=== PATIENT | female | born 1955 | race African-American/Black ===

== ENCOUNTER 2018-02-24 16:58 | Inpatient (IN) | payer MEDICARE, MEDICAID ==
[~2018-02-24] VITALS: Ht 167.6 cm; Wt 74.4 kg
--- NOTE | 2018-02-24 17:00 | NUR ---
AAOX3, C/O ASTHMA ATTACK, WORSENING SOB FOR THE PAST 4 DAYS. RESP IS LABORED, TACHYPNEIC. SKIN IS WARM AND DRY. PLACED ON MONITOR AND NC AT 2L/MIN. AWAITING MD FOR EVAL.
[2018-02-24] MEDS ORDERED: Magnesium 1GM/D5W 100ML PREMIX 200 ML IV ONE ×2 (17:15→17:27)
[2018-02-24] MEDS ORDERED: IPRATROPIUM NEB FS 0.5 MG/2.5 ML AMPUL.NEB ONE (17:17)
[2018-02-24] MEDS ORDERED: ALBUTEROL FS 2.5 MG/3 ML VIAL.NEB ONE (17:17)
[2018-02-24] MEDS ORDERED: methylPREDNISolone SOD SUCC 125 MG/2ML VIAL ONE (17:27)
[2018-02-24] MEDS ORDERED: IV NS 0.9% 1,000 ML BAG IV ONE (17:30)
[2018-02-24] MEDS ORDERED: ALBUTEROL FS 2.5 MG/3 ML VIAL.NEB NEB ONE (17:30)
[2018-02-24] MEDS ORDERED: IPRATROPIUM NEB FS 0.5 MG/2.5 ML AMPUL.NEB NEB ONE (17:30)
[2018-02-24] MEDS ORDERED: methylPREDNISolone SOD SUCC 125 MG/2ML VIAL IV ONE (17:30)
[2018-02-24 17:44] LABS: BASOPHILS # (AUTO) 0.1 /CMM (0.0-0.2); BASOPHILS % (AUTO) 0.7 % (0.0-2.0); EOSINOPHILS % (AUTO) 1.7 % (0.0-6.0); HEMATOCRIT 37 % (33-45); HEMOGLOBIN 12.1 g/dL (11.5-14.8); LYMPHOCYTES # (AUTO) 2.6 /CMM (0.8-4.8); LYMPHOCYTES % (AUTO) 31.6 % (20.0-44.0); MEAN CORPUSCULAR HGB CONC 32 g/dl (31.0-36.0); MEAN CORPUSCULAR VOLUME 73 fL (82-100); MONOCYTES # (AUTO) 0.7 /CMM (0.1-1.30); MONOCYTES % (AUTO) 7.9 % (2.0-12.0); NEUTROPHILS # (AUTO) 4.8 /CMM (1.8-8.9); NEUTROPHILS % (AUTO) 58.1 % (43.0-81.0); PLATELET COUNT (AUTO) 272 /CMM (150-450); RDW COEFFICIENT OF VARIATION 16.5 (11.5-15.0); RED BLOOD CELL COUNT(AUTO) 5.12 MIL/uL (4.0-5.2); WHITE BLOOD COUNT (AUTO) 8.3 K/uL (4.3-11.0)
[2018-02-24 17:55] LABS: MAGNESIUM 2.3 mg/dL (1.8-2.4)
[2018-02-24 18:04] LABS: TROPONIN I < 0.017 ng/mL (0.00-0.056)
[2018-02-24 18:05] LABS: CALCIUM, SERUM 8.7 mg/dL (8.5-10.1); CREATININE 1.6 mg/dL (0.6-1.3); POTASSIUM 2.9 mmol/L (3.5-5.1)
[2018-02-24 18:10] LABS: ALBUMIN 3.2 g/dL (3.4-5.0); BILIRUBIN,DIRECT 0.1 mg/dL (0.0-0.2); BILIRUBIN,TOTAL 0.4 mg/dL (0.2-1.0); TOTAL PROTEIN, SERUM 7.2 g/dL (6.4-8.2)
[2018-02-24] MEDS ORDERED: VALA500T36 PO (18:28)
[2018-02-24] MEDS ORDERED: LEVO100T9 PO (18:28)
[2018-02-24] MEDS ORDERED: TIOT18CA3 IH (18:28)
[2018-02-24] MEDS ORDERED: POTA8TAB3 PO (18:28)
[2018-02-24] MEDS ORDERED: ESOM40CA PO (18:28)
[2018-02-24] MEDS ORDERED: OLAN10TA3 PO (18:28)
[2018-02-24] MEDS ORDERED: BUDE10.2 INH (18:28)
[2018-02-24] MEDS ORDERED: HYDR50TA3 PO (18:28)
[2018-02-24] MEDS ORDERED: TRAZ-182 PO (18:28)
[2018-02-24] MEDS ORDERED: ALBU18HF2 IH (18:28)
[2018-02-24] MEDS ORDERED: CALC-1026 PO (18:28)
[2018-02-24] MEDS ORDERED: POTASSIUM CHLORIDE 20 MEQ TAB.PRT.SR PO ONE ×2 (19:00→19:04)
--- NOTE | 2018-02-24 19:02 | NUR ---
REPORT GIVEN TO DONOVAN DOZIER FOR FREDDY.
--- NOTE | 2018-02-24 20:03 | NUR ---
CALLING REPORT TO DONOVAN RODRIGUEZ
[2018-02-24 20:20] VITALS: BP 126/76
--- NOTE | 2018-02-24 20:20 | NUR ---
INTERNET PROJECT MANAGER OPENING NOTES: RECEIVED PT AND IS A/OX4. PT IS ON ROOM AIR AND TOLERATING WELL. PT TO BE PLACED ON TELE BOX. PT HAS IV ON L FOREARM #18G AND IS PATENT AND INTACT. PT TO BE PLACED ON TELE BOX. NASAL CANNULA PLACED NEXT TO BEDSIDE FOR PRN 02 SUPP. CALL LIGHT WITHIN PT'S REACH. BED KEPT IN LOW, LOCKED POSITION, AND SIDE RAILS X 2UP. WILL CONTINUE TO MONITOR PT.
[2018-02-24 20:30] VITALS: BP 126/76
--- NOTE | 2018-02-24 20:40 | NUR ---
PERSONAL FINANCIAL REPRESENTATIVE NOTES: $400 COLLECTED ALONG WITH PHILIP BIANCHI. 20 ($20 BILLS) ; PUT IN SAFE.
--- NOTE | 2018-02-24 20:46 | NUR ---
ETHOLOGIST NOTES: INFORMED RUG CLEANER RADHA THAT PT IS ON FLOOR AND PT IS REQUESTING FOR SOMETHING TO EAT. PER LISA MARTIN, LOW SODIUM OW CARB DIET.
[2018-02-24] MEDS ORDERED: Z GUARD REMEDY 2 OZ OINT TP PRN (21:00)
[2018-02-24] MEDS ORDERED: DEXTROSE 50%-WATER 50 ML DISP.SYRIN IV PRN (21:00)
[2018-02-24] MEDS ORDERED: ONDANSETRON HCL/PF 4 MG/2 ML VIAL IVP PRN (21:00)
[2018-02-24] MEDS ORDERED: ACETAMINOPHEN 325 MG TABLET PO PRN (21:00)
[2018-02-24] MEDS: IPRATROPIUM NEB FS 0.5 MG/2.5 ML AMPUL.NEB NEB SCH (21:33)
[2018-02-24] MEDS: ALBUTEROL FS 2.5 MG/0.5 ML VIAL.NEB NEB SCH (21:34)
[2018-02-24] MEDS: ATORVASTATIN 40 MG TABLET PO SCH (21:35)
[2018-02-24] MEDS: BLOOD SUGAR DIAGNOSTIC 1 EACH STRIP IN SCH (21:39)
[2018-02-24] MEDS: INSULIN REGULAR, HUMAN 100 UNIT/ML 3 ML VIAL SQ PRN (21:51)
--- NOTE | 2018-02-24 21:52 | NUR ---
RUG TOUCH UP PAINTER NOTES: BLOOD SUGAR 227. 4 UNITS OF INSULIN WAS ADMINISTERED. SNACK PROVIDED. HAD TO MANUALLY ADMIN PT IS A NEW ADMISSION. HAD TO BORROW INSULIN. WILL CONTINUE TO MONITOR PT.
[2018-02-24] MEDS: ZOLPIDEM TARTRATE 5 MG TABLET PO PRN (22:03)
--- NOTE | 2018-02-24 22:10 | NUR ---
SPECIFICATION CONSULTANT NOTES: PT REQUESTED SLEEPING AID. PT WAS ADMINISTERED AMBIEN 5MG PO. WILL CONTINUE TO MONITOR PT.
[2018-02-24] MEDS: methylPREDNISolone SOD SUCC 40 MG/ML VIAL IV SCH (23:08)
[2018-02-25] VITALS: BP 124/62
--- NOTE | 2018-02-25 01:37 | NUR ---
ADMINISTRATIVE DIETITIAN NOTES: LISA GARCIA AT BEDSIDE.
[2018-02-25] MEDS: DOCUSATE SODIUM 100 MG CAPSULE PO SCH ×3 (01:49→17:52)
--- NOTE | 2018-02-25 02:00 | NUR ---
AGRONOMY MANAGER NOTES: $400 VERA IN [place]OPE BROUGHT DOWNSTAIRS AND PLACED IN SAFE. DEANDRE, PROJECT ARCHITECT, COSIGNED.
[2018-02-25 04:00] VITALS: BP 133/84
[2018-02-25] MEDS: BLOOD SUGAR DIAGNOSTIC 1 EACH STRIP IN SCH (06:00)
[2018-02-25] MEDS: INSULIN REGULAR, HUMAN 100 UNIT/ML 3 ML VIAL SQ PRN ×3 (06:27→17:24)
--- NOTE | 2018-02-25 06:32 | NUR ---
JEWEL CORNER BRUSHING MACHINE OPERATOR NOTES: BLOOD SUGAR WAS 219. 4 UNITS OF INSULIN WAS ADMINISTERED. SNACK PROVIDED. WILL CONTINUE TO MONITOR PT.
[2018-02-25 06:33] LABS: EOSINOPHILS % (AUTO) 0.6 % (0.0-6.0); HEMATOCRIT 36 % (33-45); HEMOGLOBIN 11.7 g/dL (11.5-14.8); MEAN CORPUSCULAR HGB CONC 32 g/dl (31.0-36.0); MEAN CORPUSCULAR VOLUME 74 fL (82-100); MONOCYTES # (AUTO) 0.1 /CMM (0.1-1.30); MONOCYTES % (AUTO) 2.2 % (2.0-12.0); NEUTROPHILS # (AUTO) 4.3 /CMM (1.8-8.9); NEUTROPHILS % (AUTO) 79.2 % (43.0-81.0); PLATELET COUNT (AUTO) 276 /CMM (150-450); RDW COEFFICIENT OF VARIATION 17.4 (11.5-15.0); WHITE BLOOD COUNT (AUTO) 5.4 K/uL (4.3-11.0)
--- NOTE | 2018-02-25 06:45 | NUR ---
ADVANCED PRACTICE REGISTERED NURSE CLOSING NOTES: ALL NEEDS WERE ATTENDED AND ANTICIPATED FOR. PT ON ROOM AIR AND TOLERATING WELL. PT HAS NASAL CANNULA AT BEDSIDE. IV REMAINS INTACT AND HAS BEEN FLUSHED. PT SITTING UP IN BED AWAITING FOR BREAKFAST. PT ON TELE BOX AND READING SHOWS SR 70S. CALL LIGHT WITHIN PT'S REACH .BED KEPT IN LOW, LOCKED POSITION, AND SIDE RAILS X 2UP. WILL ENDORSE TO AM NURSE FOR FREDDY.
[2018-02-25 06:49] LABS: CALCIUM, SERUM 8.9 mg/dL (8.5-10.1); CREATININE 1.3 mg/dL (0.6-1.3); MAGNESIUM 2.3 mg/dL (1.8-2.4); PHOSPHORUS 2.5 mg/dL (2.5-4.9); POTASSIUM 4.2 mmol/L (3.5-5.1)
--- NOTE | 2018-02-25 07:00 | NUR ---
REPORT RECEIVED AT THE BEDSIDE. PATIENT IS RESTING COMFORTABLY IN BED. NO SOB OR DISTRESS NOTED AT THIS TIME. PATIENT DENIES PAIN AT THIS TIME. HEART RATE SR IN THE 60S. BED IN A LOW POSITION, CALL LIGHT WITHIN PATIENT REACH. WILL MONITOR.
[2018-02-25] MEDS: ALBUTEROL FS 2.5 MG/0.5 ML VIAL.NEB NEB SCH ×4 (07:27→19:44)
[2018-02-25] MEDS: IPRATROPIUM NEB FS 0.5 MG/2.5 ML AMPUL.NEB NEB SCH ×4 (07:27→19:44)
[2018-02-25 08:00] VITALS: BP 122/68
[2018-02-25] MEDS ORDERED: IPRATROPIUM NEB FS 0.5 MG/2.5 ML AMPUL.NEB NEB SCH (08:00)
[2018-02-25] MEDS: VALACYCLOVIR HCL 500 MG TABLET PO SCH (08:22)
[2018-02-25] MEDS: POTASSIUM CHLORIDE 10 MEQ TABLET.SA PO SCH (08:22)
[2018-02-25] MEDS: PANTOPRAZOLE 40 MG TABLET.DR PO SCH (08:22)
[2018-02-25] MEDS: CLOPIDOGREL BISULFATE 75 MG TABLET PO SCH (08:22)
[2018-02-25] MEDS: HYDROCHLOROTHIAZIDE 25 MG TABLET PO SCH (08:26)
[2018-02-25] MEDS: HYDROCODONE/APAP 5/325MG 1 EACH TABLET PO PRN ×2 (08:27→17:51)
[2018-02-25] MEDS: LEVOTHYROXINE SODIUM 100 MCG TABLET PO SCH (08:27)
[2018-02-25] MEDS: TRAZODONE 50 MG TABLET PO SCH ×2 (08:28→17:52)
[2018-02-25] MEDS: CALCIUM CARBONATE (1250) 500 MG TABLET PO SCH ×2 (08:30→17:52)
[2018-02-25] MEDS: methylPREDNISolone SOD SUCC 40 MG/ML VIAL IV SCH ×3 (08:30→17:52)
[2018-02-25] MEDS: NICOTINE PATCH (7MG) 7 MG PATCH.TD24 TD SCH (08:35)
[2018-02-25] MEDS ORDERED: OLANZAPINE 10 MG TABLET PO SCH (09:00)
[2018-02-25] MEDS ORDERED: SYMBICORT INH SCH (09:00)
[2018-02-25] MEDS ORDERED: ASPIRIN 81 MG TAB.CHEW PO SCH (09:00)
[2018-02-25] MEDS: OLANZAPINE 5 MG TABLET PO SCH (09:24)
--- NOTE | 2018-02-25 09:44 | NUR ---
ASKED PT IF SOMEONE WOULD BE ABLE TO PROVIDE HER SYMBICORT FROM HOME OUR PHARMACY DOES NOT HAVE THIS MEDICATION. PT STATES THAT SHE CANNOT. INFORMED LULU IN PHARMACY.
[2018-02-25] MEDS ORDERED: DEXTROSE 50%-WATER 50 ML DISP.SYRIN IV PRN (10:30)
--- NOTE | 2018-02-25 10:55 | NUR ---
MT REFUSING SCD STOCKINGS AT THIS TIME
[2018-02-25] MEDS: GUAIFENESIN LA 600 MG TABLET.SA PO SCH ×2 (11:00→21:02)
--- NOTE | 2018-02-25 11:28 | NUR ---
ATTEMPTED TO GIVE MUCINEX TAB. PT STATES "CAN'T YOU SEE I'M SLEEPING. LATER."
[2018-02-25] MEDS: BLOOD SUGAR DIAGNOSTIC 1 EACH STRIP VI SCH ×3 (12:06→21:10)
[2018-02-25] MEDS: FLUTICASONE/VILANTEROL 1 EACH BLST.W.DEV IH SCH (14:25)
[2018-02-25 16:00] VITALS: BP 131/70
[2018-02-25 20:00] VITALS: BP 99/56
--- NOTE | 2018-02-25 20:00 | NUR ---
MS SACHA INITIAL NOTES RECEIVED REPORT FROM AM NURSE AND CHECKED THE PT SEEN SITTING IN HER BED WHILE WATCHING TV AT THIS TIME. SHE STATED SHE'S OK AND ONLY SHE NEEDS AT THIS TIME SOME FOOD TO EAT BECAUSE SHE STILL HUNGRY. OFFERED SOME SANDWICH AND JUICE. LEFT FOREARM HEPLOCK PATENT AND INTACT. AWARE HOW TO USE THE CALL LIGHT SYSTEM AND ENCOURAGE HER TO USE IT IF SHE NEEDS SOME HELP OR NEEDS THE NURSE. KEPT HER WARM AND COMFORTABLE AT ALL TIMES. PLACE CALL LIGHT AT REACH. WILL CONTINUE TO MONITOR.
[2018-02-25] MEDS: ZOLPIDEM TARTRATE 5 MG TABLET PO PRN (21:10)
[2018-02-25] MEDS: ATORVASTATIN 40 MG TABLET PO SCH (21:10)
[2018-02-25] MEDS: *INSULIN REGULAR(HUMULIN R)HUM 100 UNIT/ML VIAL SQ PRN (21:11)
--- NOTE | 2018-02-25 21:30 | NUR ---
MS GIS MANAGER NOTES ROUTINE MEDS GIVEN WELL HER SLEEP MEDICATION SHE REQUESTED. ATE WELL BLOOD SUGAR ALSO CHECKED 190, 3 UNITS OF INSULIN GIVEN ORDERED. NO SIGNS OF HYPER GLYCEMIA NOTED. KEPT HER WARM AND COMFORTABLE AT ALL TIMES. WILL CONTINUE TO MONITOR.
[2018-02-26] MEDS: HYDROCODONE/APAP 5/325MG 1 EACH TABLET PO PRN ×2 (00:29→07:21)
--- NOTE | 2018-02-26 00:29 | NUR ---
MS SACHA NOTES PT CALLED AND ASKING FOR PAIN MEDS NORCO TABLET GIVEN ORDERED. SHE BACK TO REST AFTER TALKING TO HER ROOM MATE. KEPT HER WARM AND COMFORTABLE AT ALL TIMES. PLACE CALL LIGHT AT REACH. WILL CONTINUE TO MONITOR.
[2018-02-26] MEDS: BLOOD SUGAR DIAGNOSTIC 1 EACH STRIP VI SCH ×2 (05:58→12:08)
[2018-02-26] MEDS: INSULIN REGULAR, HUMAN 100 UNIT/ML 3 ML VIAL SQ PRN (06:01)
[2018-02-26 07:04] LABS: HEMATOCRIT 36 % (33-45); HEMOGLOBIN 11.4 g/dL (11.5-14.8); MEAN CORPUSCULAR HGB CONC 32 g/dl (31.0-36.0); MEAN CORPUSCULAR VOLUME 75 fL (82-100); PLATELET COUNT (AUTO) 306 /CMM (150-450); RDW COEFFICIENT OF VARIATION 17.8 (11.5-15.0); RED BLOOD CELL COUNT(AUTO) 4.79 MIL/uL (4.0-5.2); WHITE BLOOD COUNT (AUTO) 15.9 K/uL (4.3-11.0)
--- NOTE | 2018-02-26 07:06 | NUR ---
REPORT RECEIVED AT THE BEDSIDE. PATIENT RESTING COMFORTABLY IN BED. NO SOB OR DISTRESS NOTED. PATIENT REPORTS 8/10 PAIN, WILL FOLLOW UP WITH PAIN MEDICATION. BED IN A LOW POSITION, CALL LIGHT WITHIN PATIENT REACH. WILL MONITOR.
--- NOTE | 2018-02-26 07:07 | NUR ---
MS TERRAZZO FINISHER HELPER CLOSING NOTES PT RESTING COMFORTABLY IN BED WITHOUT ANY ACUTE DISTRESS NOTED. NO SIGNS OF SOB. BLOOD SUGAR CHECKED DONE 177, 3 UNITS OF INSULIN MIGUEL SQ ORDERED. NO SIGNS OF HYPER GLYCEMIA NOTED. ALL DUE MEDS GIVEN AND ALL NEEDS MET. STABLE MIGUEL THE NIGHT . PAIN SUBSIDE AFTER PAIN MEDS GIVEN. KEPT HER WARM AND COMFORTABLE AT ALL TIMES. PLACE CALL LIGHT AT REACH. ENDORSE TO AM NURSE FOR CONTINUITY OF CARE.
[2018-02-26] MEDS: PANTOPRAZOLE 40 MG TABLET.DR PO SCH (07:21)
[2018-02-26] MEDS: LEVOTHYROXINE SODIUM 100 MCG TABLET PO SCH (07:21)
[2018-02-26 07:57] LABS: CALCIUM, SERUM 9.1 mg/dL (8.5-10.1); CREATININE 1.3 mg/dL (0.6-1.3); POTASSIUM 3.9 mmol/L (3.5-5.1)
[2018-02-26] MEDS: IPRATROPIUM NEB FS 0.5 MG/2.5 ML AMPUL.NEB NEB SCH ×2 (07:57→11:30)
[2018-02-26 07:58] LABS: MAGNESIUM 2.2 mg/dL (1.8-2.4); PHOSPHORUS 3.2 mg/dL (2.5-4.9)
[2018-02-26] MEDS: ALBUTEROL FS 2.5 MG/0.5 ML VIAL.NEB NEB SCH ×2 (07:58→12:13)
[2018-02-26 08:00] VITALS: BP 97/52
[2018-02-26] MEDS: HYDROCHLOROTHIAZIDE 25 MG TABLET PO SCH (08:22)
[2018-02-26 08:44] LABS: LYMPHOCYTES % (MANUAL) 11 % (16-48); MONOCYTES % (MANUAL) 8 % (0-11.0); NEUTROPHILS % (MANUAL) 81 (42-76)
[2018-02-26] MEDS: DOCUSATE SODIUM 100 MG CAPSULE PO SCH (09:18)
[2018-02-26] MEDS: TRAZODONE 50 MG TABLET PO SCH (09:18)
[2018-02-26] MEDS: CALCIUM CARBONATE (1250) 500 MG TABLET PO SCH (09:18)
[2018-02-26] MEDS: OLANZAPINE 5 MG TABLET PO SCH (09:18)
[2018-02-26] MEDS: methylPREDNISolone SOD SUCC 40 MG/ML VIAL IV SCH ×2 (09:18→12:08)
[2018-02-26] MEDS: POTASSIUM CHLORIDE 10 MEQ TABLET.SA PO SCH (09:18)
[2018-02-26] MEDS: GUAIFENESIN LA 600 MG TABLET.SA PO SCH (09:18)
[2018-02-26] MEDS: NICOTINE PATCH (7MG) 7 MG PATCH.TD24 TD SCH (09:18)
[2018-02-26] MEDS: FLUTICASONE/VILANTEROL 1 EACH BLST.W.DEV IH SCH (09:18)
[2018-02-26] MEDS: CLOPIDOGREL BISULFATE 75 MG TABLET PO SCH (09:18)
[2018-02-26] MEDS: VALACYCLOVIR HCL 500 MG TABLET PO SCH (09:18)
[2018-02-26] MEDS ORDERED: IV NS 0.9% 500 ML IV SCH (10:30)
[2018-02-26] MEDS ORDERED: LEVOFLOXACIN (500MG) 500 MG TABLET PO SCH (11:00)
[2018-02-26] MEDS: *INSULIN REGULAR(HUMULIN R)HUM 100 UNIT/ML VIAL SQ PRN (12:08)
--- NOTE | 2018-02-26 12:16 | NUR ---
PATIENT REFUSED HHN TX, PATIENT STABLE . NO SOB NOTED AT THIS TIME. Addendum: 02/26/18 at 1224 by FRIDA SANTIAGO RT Amended: Links added.
[2018-02-26 12:23] VITALS: BP 112/72
--- NOTE | 2018-02-26 12:53 | NUR ---
SPOKE TO LISA ALEMAN. INFORMED HER OF PT BLOOD PRESSURE. MANUFACTURING ENGINEERING DIRECTOR STATES OK TO RUN 500ML NS A BOLUS AND DC PATIENT HOME. PRESCRIPTION LEFT FOR PATIENT TO FILL.
--- NOTE | 2018-02-26 13:29 | NUR ---
DISCHARGE INSTRUCTIONS GIVEN TO THE PATIENT AND ABLE TO UNDERSTAND. ALL BELONGINGS ACCOUNTED FOR INCLUDING MONEY IN SAFE. ALL PAPERWORK SIGNED. PATIENT GIVEN RX FOR ANTIBIOTICS. PATIENT INSTRUCTED TO FOLLOW UP WITH MD WITHIN A WEEK AND STOP SMOKING. PT STATES UNDERSTANDING. IV REMOVED AND PRESSURE APPLIED. NO BLEEDING NOTED AT THE SITE. PATIENT REFUSED TO HAVE A RIDE HOME, STATES "MY CAR IS IN THE PARKING LOT, I FEEL FINE." PAY STATION COLLECTOR, LOVE, IN AGREEMENT SO LONG PATIENT HAS NOT HAD ANY SEDATING ,MEDS, COMPLAINS OF NO DIZZINESS AND ORTHOSTATICS STABLE. PATIENT MEETS ALL PAY STATION COLLECTOR DISCHARGE CRITERIA. PATIENT REFUSED DISCHARGE PHOTOS OF SKIN. "THATS JUST MY SKIN. I DON'T KNOW WHY YOU NEED THAT. ITS FINE." EXPLAINED THE PROCESS AND IMPORTANCE OF DISCHARGE PHOTOS TO FOLLOW UP WITH ADMISSION, PATIENT STILL REFUSED. PATIENT LEFT IN STABLE CONDITION, VIA PRIVATE CAR TO HOME. AMBULATING AND TOLERATING WELL.
[2018-02-26] MEDS ORDERED: METH4TAB17 PO (18:21)
[2018-02-26] MEDS ORDERED: LEVO500T75 PO (18:21)
[2018-02-26] MEDS ORDERED: SIMV40TA5 PO (18:25)
== END 2018-02-26 14:25 | disposition home or self-care (01) | DRG 177 ==
LOC: ER 16:59 → TELE 19:56 → MED 02-25 08:56
PROVIDERS: ADMIT Nurse Practitioner Acute Care; ATTEND Nurse Practitioner Acute Care
DX: J15.6 Pneumonia due to other Gram-negative bacteria (principal); N17.0 Acute kidney failure with tubular necrosis; J44.1 Chronic obstructive pulmonary disease with (acute) exacerbation; E44.1 Mild protein-calorie malnutrition; I69.354 Hemiplegia and hemiparesis following cerebral infarction affecting left non-dominant side; J44.0 Chronic obstructive pulmonary disease with (acute) lower respiratory infection; E11.22 Type 2 diabetes mellitus with diabetic chronic kidney disease; I12.9 Hypertensive chronic kidney disease with stage 1 through stage 4 chronic kidney disease, or unspecified chronic kidney disease; E87.6 Hypokalemia; N18.9 Chronic kidney disease, unspecified; I25.10 Atherosclerotic heart disease of native coronary artery without angina pectoris; E11.65 Type 2 diabetes mellitus with hyperglycemia; D24.2 Benign neoplasm of left breast; D24.1 Benign neoplasm of right breast
CPT/HCPCS: 36415; 71045-TC; 80048-TC; 80061-TC; 80076-TC; 82962-TC; 83735-TC; 84100-TC; 84484-TC; 85025-TC; 87081-TC; 93307-TC; A4606; J1815; J2920; J2930; J3475; J7030; Z7610

== ENCOUNTER 2018-10-16 21:15 | Inpatient (IN) | payer MEDICARE, MEDICAID ==
[~2018-10-16] VITALS: Ht 170.2 cm; Wt 91.6 kg
[~2018-10-16 21:15] MED LIST: ALBU18HF2 IH; BUDE10.2 INH; CALC-1026 PO; ESOM40CA PO; HYDR50TA3 PO; LEVO100T9 PO; LEVO500T75 PO; METH4TAB17 PO; OLAN10TA3 PO; POTA8TAB3 PO; SIMV40TA5 PO; TIOT18CA3 IH; TRAZ-182 PO; VALA500T36 PO
--- NOTE | 2018-10-16 21:15 | NUR ---
PT WAS BIBRA FROM HOME; C/O SOB, WHEEZING AT HOME X1HR, GIVEN ALBUTEROL BREATHING TX SQL TECH; SQL TECH O2 SAT WAS AT 80%, PT AAOX4, ABLE TO MAKE NEEDS KNOWN, ALERT, NOTED WITH LABORED BREATHING, ON 15LPM NON-REBREATHER, O2 SAT @100% AT THIS TIME, PT ON MONITOR, TO ER BED 5, RT AND MD AT BEDSIDE,
--- NOTE | 2018-10-16 21:38 | NUR ---
XRAY AT BEDSIDE.
--- NOTE | 2018-10-16 21:39 | NUR ---
BLOOD COLLECTED AND SENT TO LAB, NO URINE ORDERS AT THIS TIME
--- NOTE | 2018-10-16 21:41 | NUR ---
PER , PUT PT ON O2 NC @ 3LPM, PT O2 SAT @ 99% AT THIS TIME
[2018-10-16 21:51] LABS: BASOPHILS % (AUTO) 0.4 % (0.0-2.0); EOSINOPHILS % (AUTO) 3.7 % (0.0-6.0); HEMATOCRIT 38 % (33-45); HEMOGLOBIN 12.1 g/dL (11.5-14.8); LYMPHOCYTES # (AUTO) 3.7 /CMM (0.8-4.8); MEAN CORPUSCULAR HGB CONC 32 g/dl (31.0-36.0); MEAN CORPUSCULAR VOLUME 76 fL (82-100); MONOCYTES # (AUTO) 0.8 /CMM (0.1-1.30); MONOCYTES % (AUTO) 9.1 % (2.0-12.0); NEUTROPHILS # (AUTO) 3.6 /CMM (1.8-8.9); NEUTROPHILS % (AUTO) 42.8 % (43.0-81.0); PLATELET COUNT (AUTO) 226 /CMM (150-450); RED BLOOD CELL COUNT(AUTO) 4.98 MIL/uL (4.0-5.2); WHITE BLOOD COUNT (AUTO) 8.5 K/uL (4.3-11.0)
[2018-10-16] MEDS ORDERED: ALBUTEROL FS 2.5 MG/3 ML VIAL.NEB ONE (21:54)
[2018-10-16] MEDS ORDERED: IPRATROPIUM NEB FS 0.5 MG/2.5 ML AMPUL.NEB ONE (21:54)
--- NOTE | 2018-10-16 21:58 | NUR ---
EKG AT BEDSIDE.
[2018-10-16] MEDS ORDERED: ALBUTEROL FS 2.5 MG/3 ML VIAL.NEB NEB ONE (22:00)
[2018-10-16] MEDS ORDERED: IPRATROPIUM NEB FS 0.5 MG/2.5 ML AMPUL.NEB NEB ONE (22:00)
[2018-10-16 22:01] LABS: CALCIUM, SERUM 8.6 mg/dL (8.5-10.1); CREATININE 1.4 mg/dL (0.6-1.3); POTASSIUM 3.5 mmol/L (3.5-5.1)
--- NOTE | 2018-10-16 22:05 | NUR ---
PT RECIEVING BREATHING TREATMENT.
[2018-10-16 22:06] LABS: ABG OXYGEN SATURATION 95.2 % (92.0-98.5); ABG PCO2 37.1 mmHg (35.0-45.0); ABG PO2 87.7 mmHg (75.0-100.0); AaDO2 97.1 mmHg; MetHb 0.1 % (0.0-1.5); O2Hb 91.3 % (94.0-97.0); SITE, ABG Right Radial; VENT MODE, BG 3LPM NC
--- NOTE | 2018-10-16 22:29 | NUR ---
PT AMBULATED TO BATHROOM WITH STEADY GAIT. NAD NOTED.
--- NOTE | 2018-10-16 22:33 | NUR ---
PT BACK IN BED, PUT ON MONITOR AND PULSE OX. NAD NOTED. SATURATION 100% ON N/C 2L
--- NOTE | 2018-10-16 22:40 | NUR ---
POCKET SETTER LOCKSTITCH ADMITTING NOTE ADMITTED PT FROM ER, REPORT GIVEN BY FIELD PARTY MANAGER, ADMITTED FOR RESPIRATORY FAILURE, AOX4, ON NC @2L/PM, WELL ABDIRAHMAN', DENIES ANY PAIN AT THIS TIME, SKIN INTACT, AMBULATORY, SEEN BY DR ALEX AT BEDSIDE, ALL ADMITTING ORDERS ENTERED, WITH RAC#18G, OFFERED, BEDBATH, PT REFUSED, ALL SAFETY MEASURES MET.
--- NOTE | 2018-10-16 22:42 | NUR ---
REPORT GIVEN TO LAN MAN FOR FREDDY.
[2018-10-16 23:10] VITALS: BP 115/74
[2018-10-17] VITALS: BP 115/74
[2018-10-17] MEDS ORDERED: ACETAMINOPHEN 325 MG TABLET PO PRN (01:00)
[2018-10-17] MEDS ORDERED: ONDANSETRON HCL/PF 4 MG/2 ML VIAL IVP PRN (01:00)
[2018-10-17] MEDS ORDERED: IPRATROPIUM NEB FS 0.5 MG/2.5 ML AMPUL.NEB NEB PRN (01:00)
[2018-10-17] MEDS ORDERED: ALBUTEROL FS 2.5 MG/3 ML VIAL.NEB NEB PRN (01:00)
[2018-10-17] MEDS: TRAZODONE 50 MG TABLET PO SCH ×2 (01:34→12:57)
[2018-10-17] MEDS ORDERED: ENOXAPARIN SODIUM 30 MG/0.3 ML DISP.SYRIN SQ SCH (02:00)
[2018-10-17] MEDS ORDERED: LEVOFLOXACIN 250 MG /D5W 50 ML 50 ML IV ONE (02:32)
[2018-10-17] MEDS: ENOXAPARIN SODIUM 30 MG/0.3 ML DISP.SYRIN SQ SCH (02:36)
[2018-10-17] MEDS: LEVOFLOXACIN 250 MG /D5W 50 ML 250 MG in PREMIX 1 EA IV SCH (02:36)
[2018-10-17 04:36] VITALS: BP 115/74
[2018-10-17] MEDS: methylPREDNISolone SOD SUCC 40 MG/ML VIAL IV SCH ×3 (05:53→20:34)
--- NOTE | 2018-10-17 06:11 | NUR ---
CLINICAL RESEARCH NURSE CLOSING NOTE PT ENDORSED IN STABLE CONDITION, VS STABLE, NO ISSUES NOTED, WILL ENDORSE TO ON COMING NURSE FOR FREDDY.
[2018-10-17 06:16] LABS: BASOPHILS % (AUTO) 0.5 % (0.0-2.0); EOSINOPHILS % (AUTO) 4.3 % (0.0-6.0); HEMATOCRIT 36 % (33-45); HEMOGLOBIN 11.3 g/dL (11.5-14.8); LYMPHOCYTES # (AUTO) 2.4 /CMM (0.8-4.8); LYMPHOCYTES % (AUTO) 35.5 % (20.0-44.0); MEAN CORPUSCULAR HGB CONC 32 g/dl (31.0-36.0); MEAN CORPUSCULAR VOLUME 76 fL (82-100); MONOCYTES # (AUTO) 0.7 /CMM (0.1-1.30); MONOCYTES % (AUTO) 9.7 % (2.0-12.0); NEUTROPHILS # (AUTO) 3.4 /CMM (1.8-8.9); PLATELET COUNT (AUTO) 203 /CMM (150-450); RED BLOOD CELL COUNT(AUTO) 4.66 MIL/uL (4.0-5.2); WHITE BLOOD COUNT (AUTO) 6.9 K/uL (4.3-11.0)
[2018-10-17 06:28] LABS: ALBUMIN 2.8 g/dL (3.4-5.0); BILIRUBIN,TOTAL 0.3 mg/dL (0.2-1.0); CALCIUM, SERUM 8.3 mg/dL (8.5-10.1); CREATININE 1.2 mg/dL (0.6-1.3); MAGNESIUM 2.2 mg/dL (1.8-2.4); PHOSPHORUS 4.5 mg/dL (2.5-4.9); POTASSIUM 3.6 mmol/L (3.5-5.1)
[2018-10-17 08:00] VITALS: BP 120/72
--- NOTE | 2018-10-17 08:00 | NUR ---
RN NEYDA NURSING NOTE: RECIEVED PATIENT IN STABLE CONDITION FROM NIGHT NURSE, VITALS STABLE NO S/S PAIN SHORTNESS OF BREATHE, ALERT AND ORIENTED AT THIS TIME. BREATHE SOUNDS CLEAR, NO RESPIRATORY DISTRESS NOTED, NASAL CANNULA IN PLACE 2L/MIN
[2018-10-17] MEDS ORDERED: OLANZAPINE 10 MG TABLET PO SCH (09:00)
[2018-10-17] MEDS: LEVOTHYROXINE SODIUM 100 MCG TABLET PO SCH (09:28)
[2018-10-17] MEDS: OLANZAPINE 10 MG TABLET PO SCH (09:28)
[2018-10-17] MEDS: POTASSIUM CHLORIDE 10 MEQ TABLET.SA PO SCH (09:28)
[2018-10-17] MEDS: CALCIUM CARBONATE (1250) 500 MG TABLET PO SCH ×2 (09:28→16:52)
[2018-10-17] MEDS: PANTOPRAZOLE 40 MG TABLET.DR PO SCH (09:28)
[2018-10-17 10:25] LABS: THYROID STIMULATING HORMONE 3.155 uIU/mL (0.358-3.74)
[2018-10-17] MEDS: FLUTICASONE/VILANTEROL 1 EACH BLST.W.DEV IH SCH (10:41)
[2018-10-17 12:00] VITALS: BP 125/78
[2018-10-17] MEDS ORDERED: DEXTROSE 50%-WATER 50 ML DISP.SYRIN IV PRN (12:30)
[2018-10-17 16:00] VITALS: BP 130/72
--- NOTE | 2018-10-17 16:00 | NUR ---
RN TRANSFERED PATIENT TO RN JONNY, CALLED [facility] FOR DVT STALKINGS TO BE DELIVERED.
[2018-10-17] MEDS: INSULIN REGULAR, HUMAN 100 UNIT/ML 3 ML VIAL SQ PRN ×2 (17:45→21:31)
[2018-10-17] MEDS: BLOOD SUGAR DIAGNOSTIC 1 EACH STRIP IN SCH ×2 (18:05→21:28)
[2018-10-17 20:00] VITALS: BP 124/73
--- NOTE | 2018-10-17 20:00 | NUR ---
RN NOTES PATIENT IN BED, ALERT AND ORIENTED X4, NO RESPIRATORY DISTRESS, COMPLAINING OF PAIN TO RIGHT KNEE, ABLE TO MAKE NEEDS KNOWN, CONTINENT OF BOWEL AND BLADDER. KEPT SAFE, WILL CONTINUE TO MONITOR, CALL LIGHT WITHIN REACH.
[2018-10-17] MEDS: HYDROCODONE/APAP 5/325MG 1 EACH TABLET PO PRN (20:34)
[2018-10-17] MEDS: SIMVASTATIN 40 MG TABLET PO SCH (21:28)
[2018-10-18] MEDS: TRAZODONE 50 MG TABLET PO SCH ×2 (01:07→08:24)
[2018-10-18] MEDS: LEVOFLOXACIN 250 MG /D5W 50 ML 250 MG in PREMIX 1 EA IV SCH (01:08)
[2018-10-18] MEDS: methylPREDNISolone SOD SUCC 40 MG/ML VIAL IV SCH ×3 (04:44→21:31)
--- NOTE | 2018-10-18 06:24 | NUR ---
RN NOTES PATIENT IS ALERT AND ORIENTED X4, NO RESPIRATORY DISTRESS, STABLE ON ROOM AIR, COMPLAINED OF PAIN TO RIGHT KNEE, GIVEN NORCO 2 TABS WITH GOOD RELIEF, INDEPENDENT WITH SELF CARE, AMBULATORY, PER POC, CONTINUE LEVAQUIN IV AND STEROIDS IV.
[2018-10-18 07:42] LABS: HEMATOCRIT 38 % (33-45); HEMOGLOBIN 11.8 g/dL (11.5-14.8); LYMPHOCYTES # (AUTO) 0.8 /CMM (0.8-4.8); LYMPHOCYTES % (AUTO) 5.9 % (20.0-44.0); MEAN CORPUSCULAR HGB CONC 31 g/dl (31.0-36.0); MEAN CORPUSCULAR VOLUME 76 fL (82-100); MONOCYTES # (AUTO) 0.5 /CMM (0.1-1.30); MONOCYTES % (AUTO) 3.4 % (2.0-12.0); NEUTROPHILS # (AUTO) 12.7 /CMM (1.8-8.9); NEUTROPHILS % (AUTO) 90.7 % (43.0-81.0); PLATELET COUNT (AUTO) 233 /CMM (150-450); RED BLOOD CELL COUNT(AUTO) 5.03 MIL/uL (4.0-5.2)
[2018-10-18 07:58] LABS: CALCIUM, SERUM 8.9 mg/dL (8.5-10.1); CREATININE 1.3 mg/dL (0.6-1.3); POTASSIUM 4.3 mmol/L (3.5-5.1)
[2018-10-18 08:00] VITALS: BP 136/72
[2018-10-18] MEDS: BLOOD SUGAR DIAGNOSTIC 1 EACH STRIP IN SCH ×4 (08:23→21:42)
[2018-10-18] MEDS: LEVOTHYROXINE SODIUM 100 MCG TABLET PO SCH (08:23)
[2018-10-18] MEDS: PANTOPRAZOLE 40 MG TABLET.DR PO SCH (08:23)
[2018-10-18] MEDS: CALCIUM CARBONATE (1250) 500 MG TABLET PO SCH ×2 (09:39→17:30)
[2018-10-18] MEDS: OLANZAPINE 10 MG TABLET PO SCH (09:39)
[2018-10-18] MEDS: POTASSIUM CHLORIDE 10 MEQ TABLET.SA PO SCH (09:39)
[2018-10-18] MEDS: FLUTICASONE/VILANTEROL 1 EACH BLST.W.DEV IH SCH (09:40)
[2018-10-18] MEDS: INSULIN REGULAR, HUMAN 100 UNIT/ML 3 ML VIAL SQ PRN (11:53)
[2018-10-18] MEDS: HYDROCODONE/APAP 5/325MG 1 EACH TABLET PO PRN ×2 (13:22→17:34)
[2018-10-18 16:00] VITALS: BP_SYST 108; BP_SYST 116; BP_DIAS 55; BP_DIAS 62
[2018-10-18 19:32] VITALS: BP 116/62
[2018-10-18 20:00] VITALS: BP 123/73
--- NOTE | 2018-10-18 20:00 | NUR ---
MS RN NOTE PT IN BED AWAKE. A/O X 4, NO SOB, NO DISTRESS OR DISCOMFORT NOTED. DENIES PAIN. NO S/S OF HYPO OR HYPERGLYCEMIA NOTED. SIDE RAILS UP X 2 AND CALL LIGHT WITHIN REACH. VSS. CONTINUE TO MONITOR HER.
[2018-10-18] MEDS: SIMVASTATIN 40 MG TABLET PO SCH (21:30)
[2018-10-18] MEDS: ENOXAPARIN SODIUM 30 MG/0.3 ML DISP.SYRIN SQ SCH (21:30)
[2018-10-19] MEDS: TRAZODONE 50 MG TABLET PO SCH (01:34)
[2018-10-19] MEDS: LEVOFLOXACIN 250 MG /D5W 50 ML 250 MG in PREMIX 1 EA IV SCH (01:34)
[2018-10-19 04:00] VITALS: BP 127/69
[2018-10-19 04:57] VITALS: BP 127/69
[2018-10-19] MEDS: methylPREDNISolone SOD SUCC 40 MG/ML VIAL IV SCH (05:24)
--- NOTE | 2018-10-19 06:34 | NUR ---
MS RN NOTE PT IN BED ASLEEP, AROUSABLE. NO DISTRESS OR DISCOMFORT NOTED. DENIES PAIN. H/L RT HAND #22 G INTACT AND PATENT. SIDE RAILS UP X 2 AND CALL LIGHT WITHIN REACH. WILL ENDORSE TO DAY SHIFT NURSE FOR CONTINUE TO CARE.
--- NOTE | 2018-10-19 07:54 | NUR ---
MS RN NOTES PATIENT RECEIVED RESTING INSIDE ROOM. SLEEPING, EASILY AROUSABLE THROUGH VERBAL AND TACTILE STIMULI. BREATHING EVEN AND UNLABORED. NO ACUTE DISTRESS NOTED AT THIS TIME. PATIENT DENIES ANY PAIN OR DISCOMFORT. WILL CONTINUE TO MONITOR. BED LOCKED AND IN LOW POSITION. BILATERAL UPPER SIDE RAILS UP AND LOCKED. CALL LIGHT WITHIN EASY REACH
[2018-10-19 08:00] VITALS: BP 142/72
[2018-10-19] MEDS: BLOOD SUGAR DIAGNOSTIC 1 EACH STRIP IN SCH ×2 (08:07→11:55)
[2018-10-19] MEDS: INSULIN REGULAR, HUMAN 100 UNIT/ML 3 ML VIAL SQ PRN ×2 (08:08→11:55)
[2018-10-19] MEDS: CALCIUM CARBONATE (1250) 500 MG TABLET PO SCH (08:09)
[2018-10-19] MEDS: OLANZAPINE 10 MG TABLET PO SCH (08:09)
[2018-10-19] MEDS: LEVOTHYROXINE SODIUM 100 MCG TABLET PO SCH (08:09)
[2018-10-19] MEDS: PANTOPRAZOLE 40 MG TABLET.DR PO SCH (08:09)
[2018-10-19] MEDS: POTASSIUM CHLORIDE 10 MEQ TABLET.SA PO SCH (08:09)
[2018-10-19] MEDS: FLUTICASONE/VILANTEROL 1 EACH BLST.W.DEV IH SCH (08:09)
--- NOTE | 2018-10-19 12:12 | NUR ---
MS RN NOTES PATIENT SEEN AND EXAMINED BY DR. BEAN WITH OK FOR PATIENT TO DISCHARGE HOME. DISCHARGE INSTRUCTIONS AND EDUCATION PROVIDED TO PATIENT AND VERBALIZED UNDERSTANDING. IV REMOVED WITH MINIMAL BLEEDING NOTED. FSBS TAKEN WITH RESULT OF 162, PATIENT REFUSED TO HAVE INSULIN, VERBALIZED THAT SHE DOES NOT WANT TO EAT AND DOES NOT WANT TO HAVE INSULIN. RISKS AND BENEFITS EXPLAINED BUT PATIENT STRONGLY REFUSED. MD AWARE. ALL BELONGINGS COMPLETE ON DISCHARGE, NO REPORT OF MISSING INVENTORY. WRITTEN PRESCRIPTION GIVEN TO PATIENT. BUS PASS OBTAINED FROM NURSING SENIOR TECHNICAL TRAINER AND GIVEN TO PATIENT. PATIENT INITIALLY VERBALIZED THAT SHE IS GOING TO [place] BUT PRIOR TO DISCHARGE, PATIENT VERBALIZED THAT SHE WILL GO TO [facility] TO HER APARTMENT. PATIENT LEFT UNIT AT 1210 IN STABLE CONDITION. BREATHING EVEN AND UNLABORED. NO ACUTE DISTRESS. NO NEW SKIN BREAKDOWN NOTED. MD AWARE OF DISCHARGE.
== END 2018-10-19 12:07 | disposition home or self-care (01) | DRG 190 ==
LOC: ER 21:17 → TELE1 22:47 → MEDSG1 10-17 15:51
PROVIDERS: ADMIT Internal Medicine; ATTEND Internal Medicine
DX: J44.1 Chronic obstructive pulmonary disease with (acute) exacerbation (principal); N17.0 Acute kidney failure with tubular necrosis; I69.354 Hemiplegia and hemiparesis following cerebral infarction affecting left non-dominant side; J44.0 Chronic obstructive pulmonary disease with (acute) lower respiratory infection; J20.9 Acute bronchitis, unspecified; K21.9 Gastro-esophageal reflux disease without esophagitis; I10 Essential (primary) hypertension; E78.5 Hyperlipidemia, unspecified; J45.909 Unspecified asthma, uncomplicated; Z88.8 Allergy status to other drugs, medicaments and biological substances; Z79.899 Other long term (current) drug therapy; Z79.51 Long term (current) use of inhaled steroids; F17.200 Nicotine dependence, unspecified, uncomplicated; D57.3 Sickle-cell trait; E11.9 Type 2 diabetes mellitus without complications; E03.9 Hypothyroidism, unspecified; M19.90 Unspecified osteoarthritis, unspecified site; Z98.890 Other specified postprocedural states; Z68.31 Body mass index [BMI] 31.0-31.9, adult; E66.9 Obesity, unspecified; F32.9 Major depressive disorder, single episode, unspecified; G89.29 Other chronic pain; Z80.9 Family history of malignant neoplasm, unspecified; Q68.8 Other specified congenital musculoskeletal deformities; F29 Unspecified psychosis not due to a substance or known physiological condition
CPT/HCPCS: 36415; 36600; 71045-TC; 80048-TC; 80053-TC; 80061-TC; 82803-TC; 82962-TC; 83735-TC; 83880; 84100-TC; 84443-TC; 84484-TC; 85025-TC; 85378-TC; 87081-TC; A4216; A6402; G0378; J1650; J1815; J1956; J2920; J7060